=== PATIENT | male | born 1980 ===

== ENCOUNTER 2020-12-11 15:26 | Emergency (ER) | payer OTHER, SELFPAY ==
--- NOTE | 2020-12-11 15:15 | RT.EKG_ITS ---
APPROVED REPORT Exam: Resting ECG Reason for Exam: Trauma Patient Location: E HR:74 bpm ECG Measurements Heart Rate 74 AXIS LA 176 P 71 QRSd 96 QRS 87 QT 367 T 40 QTc 406 Conclusion Sinus rhythm...normal P axis, V-rate 60- 99 ST elev, probable normal early repol pattern...ST elevation, age<55
[2020-12-11 15:23] VITALS: BP 164/103; PULSE 82; RESP 16; TEMP 37; O2SAT 99
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
--- NOTE | 2020-12-11 15:45 | DI.CT_ITS ---
Exam(s) CT THORACIC LUMBAR SPINE REC EXAM: CT THORACIC LUMBAR SPINE REC CLINICAL HISTORY: please do reconstructions from ct chest/abd/pelvis TECHNIQUE: COMPARISON: No exams were available for comparison FINDINGS: There are no compression or other type fractures of the thoracic and lumbar vertebrae. No facet gabby lignment. No central osseous canal stenosis. No incidental osseous lesions IMPRESSION: No vertebral fractures evident. No listhesis. No acute compromise of the spinal canal.
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
[2020-12-11] MEDS: Omnipaque 350 MG/ML 100 ML BTL IJ (15:59)
[2020-12-11] MEDS: Normal Saline - Diluent 50 ML VIAL IV (15:59)
[2020-12-11] MEDS: Normal Saline Flush 10 ML SYR IVP (16:00)
[2020-12-11 16:15] LABS: Abs Immature Grans 0.14 10^3/uL (0.0-0.06); Absolute Basophil Count 0.05 10^3/uL (0.0-0.2); Absolute Eosinophil Count 0.26 10^3/uL (0.0-0.7); Absolute Monocyte Count 0.61 10^3/uL (0.1-0.8); Absolute Neutrophil Count 5.98 10^3/uL (1.2-6.7); Basophils % 0.6; Eosinophils % 2.9; HCT 47.4 % (40.0-50.0); HGB 15.9 g/dL (13.5-17.5); Immature Grans % 1.6; Lymphocytes % 20.4; MCH 29.3 pg (27.0-33.0); MCHC 33.5 % (32.0-36.0); MCV 87.3 fL (80-95); MPV 10.2 fL (8.0-11.0); Monocytes % 6.9; Neutrophils % 67.6; Nucleated RBC 0 %; Platelet Count 319 10^3/uL (130-400); RBC 5.43 10^6/uL (4.36-5.78); RDW 12.3 % (11.8-14.1); RDW-SD 38.9 fL; WBC 8.84 10^3/uL (4.4-10.8)
[2020-12-11 16:17] LABS: PTT Activated 25.5 sec (21.0-27.5); Prothrombin Time 9.9 sec (9.3-11.0)
[2020-12-11] MEDS: Ondansetron 4 MG/2 ML VIAL IVP ×2 (16:20→17:30)
[2020-12-11 16:21] LABS: ALT 66 U/L (16-63); Albumin 4.1 g/dL (3.4-5.0); Alkaline Phosphatase 117 U/L (46-116); Anion Gap 8.9 mmol/L (3-11); BUN 22 mg/dL (7-18); Bilirubin, Total 0.6 mg/dL (0.2-1.0); CO2 29.1 mmol/L (21.0-32.0); CREATININE 1.5 mg/dL (0.70-1.30); Calcium 9.2 mg/dL (8.5-10.1); Chloride 106 mmol/L (98-107); Estimated GFR 51.32 (mL/min/1.73m2); Glucose 133 mg/dL (74-106); Potassium 4.1 mmol/L (3.5-5.1); Sodium 144 mmol/L (136-145); Total Protein 7.8 g/dL (6.4-8.2); Troponin I < 0.05 ng/mL (<0.06)
[2020-12-11 16:42] LABS: AST 29 U/L (15-37)
[2020-12-11 16:43] VITALS: BP 178/101; PULSE 103; RESP 16; O2SAT 98
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
--- NOTE | 2020-12-11 16:59 | DI.VRAD_ITS ---
PROCEDURE INFORMATION: Exam: CT Chest With Contrast; Diagnostic Exam date and time: 12/11/2020 3:47 PM Age: 40 years old Clinical indication: Other: Trauma TECHNIQUE: Imaging protocol: Diagnostic computed tomography of the chest with contrast. Radiation optimization: All CT scans at this facility use at least one of these dose optimization techniques: automated exposure control; mA and/or kV adjustment per patient size (includes targeted exams where dose is matched to clinical indication); or iterative reconstruction. Contrast material: OMNIPAQUE 350; Contrast volume: 100 ml; Contrast route: INTRAVENOUS (IV); COMPARISON: No relevant prior studies available. FINDINGS: Limitations: None. Trachea: Normal. Bronchial tree: Normal. Lungs: Normallly inflated and clear. Pleural spaces: Normal. Heart: Normal. Coronary arteries: Normal. Aorta: Normal. Lymph nodes: No enlarged or otherwise suspicious lymph nodes. Bones/joints: No acute fracture or suspicious osseous lesion. Soft tissues: Normal. IMPRESSION: Unremarkable chest. No acute abnormalities. No evident acute injury. PROCEDURE INFORMATION: Exam: CT Abdomen And Pelvis With Contrast Exam date and time: 12/11/2020 3:47 PM Age: 40 years old Clinical indication: Other: Trauma TECHNIQUE: Imaging protocol: Computed tomography of the abdomen and pelvis with contrast. Radiation optimization: All CT scans at this facility use at least one of these dose optimization techniques: automated exposure control; mA and/or kV adjustment per patient size (includes targeted exams where dose is matched to clinical indication); or iterative reconstruction. COMPARISON: No relevant prior studies available. FINDINGS: Limitations: Image blurring secondary to patient motion. This does not significantly degrades the ability to detect significant fractures. Liver: Normal. Gallbladder and bile ducts: Normal. Pancreas: Normal. Spleen: Normal. Adrenal glands: Normal. Kidneys and ureters: Normal. Stomach and bowel: Normal. Appendix: Normal. Intraperitoneal space: No ascites, pneumoperitoneum or peritoneal lesion. Vasculature: Normal. Lymph nodes: None enlarged or otherwise suspicious. Urinary bladder: Normal. Reproductive: Normal prostate and seminal vesicles. Bones/joints: Partial bilateral sacroiliac joint ankylosis. Mild disc space narrowing and vertebral spurring L3-L4. The bones are otherwise unremarkable. Soft tissues: No mass or abdominal hernia. IMPRESSION: Unremarkable abdomen. No acute disease or evident acute injury. Dictated and Authenticated by: Mario Lacy MD. Ordering:MICHELLE Spence MD
--- NOTE | 2020-12-11 17:00 | DI.VRAD_ITS ---
PROCEDURE INFORMATION: Exam: CT Thoracic Spine Without Contrast Exam date and time: 12/11/2020 3:50 PM Age: 40 years old Clinical indication: Other: Trauma TECHNIQUE: Imaging protocol: Computed tomography images of the thoracic spine without contrast. Radiation optimization: All CT scans at this facility use at least one of these dose optimization techniques: automated exposure control; mA and/or kV adjustment per patient size (includes targeted exams where dose is matched to clinical indication); or iterative reconstruction. COMPARISON: No relevant prior studies available. FINDINGS: Vertebrae: No acute fracture. Normal alignment. Discs/Spinal canal/Neural foramina: No significant disc protrusion. No severe spinal canal stenosis. No significant neural foraminal narrowing. Minimal spondylosis is noted. Soft tissues: Unremarkable. IMPRESSION: Unremarkable CT Spine. PROCEDURE INFORMATION: Exam: CT Lumbar Spine Without Contrast Exam date and time: 12/11/2020 3:50 PM Age: 40 years old Clinical indication: Other: Trauma TECHNIQUE: Imaging protocol: Computed tomography images of the lumbar spine without contrast. Radiation optimization: All CT scans at this facility use at least one of these dose optimization techniques: automated exposure control; mA and/or kV adjustment per patient size (includes targeted exams where dose is matched to clinical indication); or iterative reconstruction. COMPARISON: No relevant prior studies available. FINDINGS: Vertebrae: No acute fracture. Normal alignment. Discs/Spinal canal/Neural foramina: No significant disc protrusion. No severe spinal canal stenosis. No significant neural foraminal narrowing. Minimal spondylosis. Soft tissues: Unremarkable. IMPRESSION: No acute findings. Dictated and Authenticated by: Aidan Cosme MD. Ordering:MICHELLE Spence MD
[2020-12-11 17:43] VITALS: BP 156/101; PULSE 101; RESP 16; TEMP 36.8; O2SAT 98
== END 2020-12-11 19:05 | disposition home or self-care (01) ==
PROVIDERS: Emergency Provider Emergency Medicine
DX: S06.0X1A Concussion with loss of consciousness of 30 minutes or less, initial encounter (principal); S02.82XA Fracture of other specified skull and facial bones, left side, initial encounter for closed fracture; S29.8XXA Other specified injuries of thorax, initial encounter; V19.3XXA Pedal cyclist (driver) (passenger) injured in unspecified nontraffic accident, initial encounter
CPT/HCPCS: 74177; 80053; 86850; 86900; 86901; 93005; 96374; 96376; 99285; 70450; 70486; 71260; 72125; 84484; 85025; 85610; 85730; 93010; 99284; J2405; J3490